=== PATIENT | male | born 1935 | race Caucasian/White ===

== ENCOUNTER 2016-04-25 10:43 | Outpatient (CLI) ==
[2016-04-25 11:43] LABS: ALBUMIN 3.7 g/dL (3.4-5.0); ALBUMIN/GLOBULIN RATIO 1.37; ANION GAP 14.1; BILIRUBIN,TOTAL 0.68 mg/dL (0.00-1.20); BUN/CREATININE RATIO 18.29; CALCIUM 9.1 mg/dL (8.2-10.2); CHOL/HDL RATIO 2.7 (4.5-6.4); CREATININE 0.82 mg/dL (0.60-1.10); POTASSIUM 4.1 mmol/L (3.5-5.1); TOTAL PROTEIN 6.4 g/dL (5.8-8.1)
== END 2016-04-25 10:44 | disposition home or self-care (01) ==
LOC: LAB 10:43
PROVIDERS: ATTEND Family Medicine
DX: J06.9 Acute upper respiratory infection, unspecified (principal); R05 Cough; I10 Essential (primary) hypertension; F41.1 Generalized anxiety disorder; J44.9 Chronic obstructive pulmonary disease, unspecified; Z00.00 Encounter for general adult medical examination without abnormal findings
CPT/HCPCS: 36415; 80053; 80061; 84443

== ENCOUNTER 2016-10-13 09:41 | Outpatient (CLI) ==
[2016-10-13 10:09] LABS: BASOPHILS # (AUTO) 0.1 K/uL (0-0.2); BASOPHILS % (AUTO) 1.4 % (0.0-3.0); EOSINOPHILS # (AUTO) 0.5 K/ul (0.0-0.7); EOSINOPHILS % (AUTO) 8.1 % (0.0-7.0); HEMATOCRIT 40.9 % (42.0-52.0); HEMOGLOBIN 14.3 g/dl (14.0-18.0); IMMATURE GRANULOCYTE % (AUTO) 0.2 % (0.0-5.0); LYMPHOCYTES # (AUTO) 1.7 K/uL (0.60-3.4); LYMPHOCYTES % (AUTO) 28.2 (10.0-50.0); MEAN CORPUSCULAR HEMOGLOBIN 33.6 pg (27.0-31.0); MONOCYTES # (AUTO) 0.5 K/uL (0.4-2.0); MONOCYTES % (AUTO) 8.4 (0-10); NEUTROPHILS # (AUTO) 3.2 K/ul (2.0-6.9); NEUTROPHILS % (AUTO) 53.7; PLATELET COUNT 176 10^3/uL (140-440); RED BLOOD COUNT 4.26 10^6/ul (4.70-6.10); WHITE BLOOD COUNT 5.92 K/ul (4.2-10.2)
[2016-10-13 10:21] LABS: BILIRUBIN,URINE Negative (NEGATIVE); KETONES,URINE Negative (NEGATIVE); LEUKOCYTE ESTERASE ,URINE Negative (NEGATIVE); NITRITE,URINE Negative (NEGATIVE); PH,URINE 5.5 (5-9); PROTEIN,URINE Negative (NEGATIVE); URINE, BLOOD Negative (NEGATIVE)
[2016-10-13 10:26] LABS: ADD URINE MICROSCOPIC NO
[2016-10-13 10:35] LABS: ALBUMIN 3.5 g/dL (3.4-5.0); ALBUMIN/GLOBULIN RATIO 1.4; BILIRUBIN,TOTAL 0.6 mg/dL (0.00-1.20); BUN/CREATININE RATIO 15.18; CALCIUM 8.9 mg/dL (8.2-10.2); CHOL/HDL RATIO 2.6 (4.5-6.4); CREATININE 0.79 mg/dL (0.60-1.10)
== END 2016-10-13 09:42 | disposition home or self-care (01) ==
LOC: LAB 09:41
PROVIDERS: ATTEND Family Medicine
DX: I10 Essential (primary) hypertension (principal); E78.5 Hyperlipidemia, unspecified; R73.9 Hyperglycemia, unspecified; M15.9 Polyosteoarthritis, unspecified; Z79.899 Other long term (current) drug therapy
CPT/HCPCS: 36415; 80053; 80061; 81001; 85025

== ENCOUNTER 2016-10-19 10:42 | Outpatient (CLI) ==
--- NOTE | 2016-10-19 12:01 | CT ---
Exam: CT of the abdomen pelvis without intravenous contrast. Comparison: None available. Reason for exam: Right upper quadrant pain. Finding: The partially imaged ground-glass nodule in the right lower lobe measuring 1.3 cm on axial image #1. No pleural effusion, or focal consolidation in the partially imaged lung bases. 1.6 cm x 2.1 cm hepatic hypodensity seen on axial image number 28 and coronal image number 51 incomp letely characterize without intravenous contrast. There are multiple other hepatic hypodensities see n throughout the liver measuring up to 1 cm. Old granulomas disease is seen within the splenic paren chyma. The pancreas and adrenal glands appear grossly unremarkable within the limitations of a noncontraste d examination The gallbladder is been removed. No hydronephrosis, hydroureter, or nephrolithiasis is seen in either kidney. No focal small bowel dilatation or transition point. No inflammatory changes are seen within the ab dominal or pelvic fat. No intra-abdominal free air, pelvic free fluid. Circumferential thickening is seen within the bladder wall. 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 No suspicious appearing osteoblastic or osteolytic lesions with moderate degenerative disease in the lumbosacral spine. The imaged osseous structures appear diffusely demineralized. Impression: 1. Partially imaged 1.3 cm nodule in the right lower lobe. Please see CT examination of the chest p erformed on the same day for further characterization. 2. Multiple hepatic hypodensities are seen throughout the liver measuring up to 2.1 cm. Findings a re incompletely evaluated without intravenous contrast administration. Recommend three-phase liver protocol or MRI for further characterization. 3. Diverticular disease without surrounding inflammatory change. 4. Circumferential bladder wall thickening may represent cystitis or outlet obstruction. 5. Diffuse demineralization of the osseous structures. Report faxed at [id number] hours on 10/19/2016.
--- NOTE | 2016-10-19 12:03 | CT ---
Exam: CT of the chest without contrast History: Shortness breath Technique: [address] of the chest without intravascular contrast FINDINGS: There is no prior study for comparison. There is a 1.1 x 1.0 cm nodule of the right lower lobe. No additional nodules, masses or infiltrates. The lungs are generally hyperexpanded without emphysematous bleb. Atherosclerotic calcification of the aorta without aneurysm. No pathologic ly mph node enlargement or abundance of the mediastinum. No acute findings of the chest wall soft tiss ues or bony thorax. Impression: 1. Chronic obstructive pulmonary disease 2. Right lower lobe nodule is indeterminate. Tissue sampling may be needed. 3. No infiltrative opacities
== END 2016-10-19 10:43 | disposition home or self-care (01) ==
LOC: RAD 10:42
PROVIDERS: ATTEND Family Medicine
DX: R10.11 Right upper quadrant pain (principal); R10.13 Epigastric pain; K21.0 Gastro-esophageal reflux disease with esophagitis; R06.02 Shortness of breath; J44.9 Chronic obstructive pulmonary disease, unspecified; Z72.0 Tobacco use

== ENCOUNTER 2017-01-10 12:13 | Outpatient (CLI) ==
[2017-01-10 12:42] LABS: BASOPHILS # (AUTO) 0.1 K/uL (0-0.2); BASOPHILS % (AUTO) 1.6 % (0.0-3.0); EOSINOPHILS # (AUTO) 0.7 K/ul (0.0-0.7); EOSINOPHILS % (AUTO) 12.1 % (0.0-7.0); HEMATOCRIT 39.2 % (42.0-52.0); HEMOGLOBIN 13.7 g/dl (14.0-18.0); IMMATURE GRANULOCYTE % (AUTO) 0.3 % (0.0-5.0); LYMPHOCYTES # (AUTO) 1.7 K/uL (0.60-3.4); LYMPHOCYTES % (AUTO) 28.5 (10.0-50.0); MEAN CORPUSCULAR HEMOGLOBIN 33.6 pg (27.0-31.0); MEAN CORPUSCULAR HGB CONC 34.9 (31.8-35.4); MEAN CORPUSCULAR VOLUME 96.1 fl (80.0-94.0); MONOCYTES # (AUTO) 0.4 K/uL (0.4-2.0); NEUTROPHILS % (AUTO) 51.5; PLATELET COUNT 160 10^3/uL (140-440); RED BLOOD COUNT 4.08 10^6/ul (4.70-6.10); WHITE BLOOD COUNT 5.79 K/ul (4.2-10.2)
[2017-01-10 12:52] LABS: BILIRUBIN,URINE Negative (NEGATIVE); KETONES,URINE Negative (NEGATIVE); LEUKOCYTE ESTERASE ,URINE Negative (NEGATIVE); NITRITE,URINE Negative (NEGATIVE); PH,URINE 5.5 (5-9); PROTEIN,URINE Negative (NEGATIVE); URINE, BLOOD Negative (NEGATIVE)
[2017-01-10 13:11] LABS: ADD URINE MICROSCOPIC NO
[2017-01-10 13:28] LABS: ALBUMIN 3.4 g/dL (3.4-5.0); ALBUMIN/GLOBULIN RATIO 1.31; ANION GAP 11.8; BILIRUBIN,TOTAL 0.77 mg/dL (0.00-1.20); BUN/CREATININE RATIO 19.73; CALCIUM 8.9 mg/dL (8.2-10.2); CHOL/HDL RATIO 2.8 (4.5-6.4); CREATININE 0.76 mg/dL (0.60-1.10); POTASSIUM 3.8 mmol/L (3.5-5.1)
== END 2017-01-10 12:14 | disposition home or self-care (01) ==
LOC: LAB 12:13
PROVIDERS: ATTEND Family Medicine
DX: I10 Essential (primary) hypertension (principal); I25.10 Atherosclerotic heart disease of native coronary artery without angina pectoris; J44.9 Chronic obstructive pulmonary disease, unspecified; K76.9 Liver disease, unspecified; Z79.899 Other long term (current) drug therapy
CPT/HCPCS: 36415; 80053; 80061; 81001; 82977; 84443; 85025

== ENCOUNTER 2017-10-01 12:38 | Outpatient (CLI) ==
--- NOTE | 2017-10-01 14:28 | CT ---
EXAM: CT of the chest without contrast History: Follow-up lung nodules. Comparison: Chest CT 01/22/2017 Technique: Multiplanar CT images through the thorax were obtained without the administration of IV c ontrast Findings: Heart remains mildly enlarged. Coronary calcifications. No pericardial effusion. No path ologically enlarged thoracic lymph nodes. No thoracic aortic aneurysm. Calcified granulomas are aga in seen within the thorax. No significant interval change in the 1.3 cm right lower lung nodule. The re is a new 8 mm irregular nodule within the right upper lobe. No consolidation. No pleural fluid a nd no pneumothorax. Within the visualized upper abdomen, no change in the hypoattenuating liver lesions consistent with c ysts. No acute osseous abnormalities. Impression: 1. New 8 mm right upper lobe lung nodule. This could be inflammatory or malignant. Tissue sampling should be considered. If biopsy is not performed then recommend follow-up chest CT in 3 months. 2. Stable 1.3 cm right lower lobe nodule.
--- NOTE | 2017-10-01 15:00 | CT ---
Exam: CT lumbar spine without intravenous contrast. Comparison: CT abdomen pelvis performed 01/22/2017. Reason for exam: Back pain. FINDINGS: No obvious vertebral body height loss is seen in the lumbar spine. There is multilevel de generative disease with intervertebral body disc space height narrowing most notably at L3-4, L4-5 an d L5-S1. These findings do not appear significantly changed from the CT examination of the abdomen pe lvis performed on 01/22/2017. There is similar appearing straightening of the lumbar lordotic curve. T12-L1: No significant central canal or foraminal narrowing. L1-L2: Small broad-based disc bulge with impression on the thecal sac resulting in mild central radha l and foraminal narrowing. L2-L3: Small broad-based disc bulge with impression on the thecal sac with mild central canal and fo raminal narrowing. L3-L4: Broad-based disc bulge with impression on the thecal sac resulting in moderate central canal and foraminal narrowing. L4-L5: Intervertebral body disc space height loss with extruded disc and facet hypertrophy resulting in moderate central canal and foraminal narrowing. L5-S1: Broad-based disc bulge with facet hypertrophy and intervertebral body disc space height loss resulting in moderate central canal and moderate to marked foraminal narrowing. Impression: 1. No acute fraction lumbar spine. 2. Multilevel discogenic disease as described. If clinical concern exists, MRI may be performed for further characterization.
== END 2017-10-01 12:39 | disposition home or self-care (01) ==
LOC: RAD 12:38
PROVIDERS: ATTEND Internal Medicine
DX: R91.1 Solitary pulmonary nodule (principal); M54.9 Dorsalgia, unspecified

== ENCOUNTER 2017-12-01 16:44 | Emergency (ER) ==
[2017-12-01 16:50] VITALS: BP 140/75; TEMP 97.8; BMI 16.4
[2017-12-01] MEDS ORDERED: ROCEPHIN IM STA (17:01)
[2017-12-01] MEDS ORDERED: LIDOCAINE HCL 1% SDV IM STA (17:01)
[2017-12-01] MEDS ORDERED: TYLENOL PO STA (17:02)
--- NOTE | 2017-12-01 17:05 | ED.PDOC ---
General ED Provider: Dr. OG ANTONIO Chief Complaint: Bite Stated Complaint: Patient is an 82 year old male who comes to the ER with right hand pain. He thinks he got bit by a spider. State that he has been bit before. States pain is 3 at rest but gets worse when touched. Time Seen by Physician: 17:03 Information Source: Patient Primary Care Provider: RANDY YUN Nursing and Triage Documentation Reviewed and Agree: Yes Does patient meet sepsis criteria?: No System Inflammatory Response Syndrome: Not Applicable Sepsis Protocol: For patient's 13 years and over: Temp is 96.8 and below OR 101 and greater Pulse >90 BPM Resp >20/minute Acutely Altered Mental Status Are patient's symptoms suggestive of a new infection, such as: -Pneumonia -Skin, Soft Tissue -Endocarditis -UTI -Bone, Joint Infection -Implantable Device -Acute Abdominal Infection -Wound Infection -Meningitis -Blood Stream Catheter Infection -Unknown Review of Systems - Review Of Systems Constitutional: Reports: No symptoms Eyes: Reports: No symptoms Ears, Nose, Mouth, Throat: Reports: No symptoms Respiratory: Reports: No symptoms Cardiac: Reports: No symptoms GI: Reports: No symptoms : Reports: No symptoms Musculoskeletal: Reports: Joint swelling (right hand ), Muscle pain Skin: Reports: Lumps Neurological: Reports: No symptoms Endocrine: Reports: No symptoms Hematologic/Lymphatic: Reports: No symptoms All Other Systems: Reviewed and Negative Past Medical History - Past Medical History Previously Healthy: Yes Endocrine: Reports: Unknown Cardiovascular: Reports: Unknown Respiratory: Reports: Unknown Hematological: Reports: Unknown Gastrointestinal: Reports: Unknown Genitourinary: Reports: Unknown Neuro/Psych: Reports: Unknown Musculoskeletal: Reports: Unknown Cancer: Reports: Unknown - Surgical History General Surgical History: Reports: Unknown - Family History Family History: Reports: Unknown - Social History Smoking Status: Former smoker Hx Substance Use: No Alcohol Screening: None Physical Exam - Physical Exam Appearance: Ill-appearing Ill-appearing: Mild Pain Distress: Severe Eyes: Conjunctiva clear ENT: Nose normal Neck: Supple Respiratory: Airway patent, Breath sounds clear, Breath sounds equal, Respirations nonlabored Cardiovascular: RRR, Pulses normal, No rub, No murmur Musculoskeletal: Limited ROM (right hand base of the 3rd finger.) Skin: Warm, Dry Neurological: Alert, Oriented Psychiatric: Anxious Critical Care Note - Critical Care Note Total Time (mins): 0 Course - Course Orders, Labs, Meds: Orders Category Date Time Status Acetaminophen [Tylenol] MEDS 12/01/17 17:02 Discontinued 1,000 mg PO ONCE STA Ceftriaxone Sodium [Rocephin] MEDS 12/01/17 17:01 Discontinued 1 gm IM ONCE STA Lidocaine HCl/Pf [Lidocaine HCl 1% Sdv] MEDS 12/01/17 17:01 Discontinued 2.1 ml IM ONCE STA Medications Discontinued Medications Generic Name Dose Route Start Last Admin Trade Name Jacinta PRN Reason Stop Dose Admin Acetaminophen 1,000 mg 12/01/17 17:02 12/01/17 17:19 Tylenol PO 12/01/17 17:03 1,000 mg ONCE STA Administration Ceftriaxone Sodium 1 gm 12/01/17 17:01 12/01/17 17:21 Rocephin IM 12/01/17 17:02 1 gm ONCE STA Administration Lidocaine HCl 2.1 ml 12/01/17 17:01 12/01/17 17:20 Lidocaine Hcl 1% Sdv IM 12/01/17 17:02 2.1 ml ONCE STA Administration Vital Signs: Temp Pulse Resp BP Pulse Ox 12/01/17 16:44 97.8 F 88 20 140/75 93 L Departure - Departure Time of Disposition: 17:40 Disposition: HOME SELF-CARE Discharge Problem: Spider bite Qualifiers: Encounter type: initial encounter Injury intent: undetermined intent Qualified Code(s): T63.304A - Toxic effect of unspecified spider venom, undetermined, initial encounter Instructions: Black Spider Bite (ED) Condition: Stable Pt referred to PMD for follow-up: Yes IPMP verified?: No Additional Instructions: Follow up with PCP in 3 days Take Medications as prescribed Prescriptions: Hydrocodone/Acetaminophen [Wilson 5-325 Tablet] 1 tab PO Q6HR PRN #12 tablet PRN Reason: PAIN Cephalexin [Keflex] 500 mg PO Q8HR #30 capsule Allergies/Adverse Reactions: Allergies No Known Allergies Allergy (Unverified 12/01/17 16:50) Home Medications: Ambulatory Orders Cephalexin [Keflex] 500 mg PO Q8HR #30 capsule 12/01/17 Hydrocodone/Acetaminophen [Wilson 5-325 Tablet] 1 tab PO Q6HR PRN #12 tablet
== END 2017-12-01 17:48 | disposition home or self-care (01) ==
LOC: ED 16:44
DX: T63.304A Toxic effect of unspecified spider venom, undetermined, initial encounter (principal)
CPT/HCPCS: 96372; 99283

== ENCOUNTER 2018-08-17 08:53 | Inpatient (IN) | payer OTHER ==
--- NOTE | 2018-08-17 09:57 | CT ---
EXAM: CT scan of the chest without contrast HISTORY: Cough TECHNIQUE: Helical imaging of the chest was performed without contrast. 5 mm thin axial images and coronal and sagittal reconstructions were provided for interpretation. Comparison 10/01/2017 CT scan of the chest. FINDINGS: The heart is normal size. There is diffuse atherosclerotic calcification of the thoracic aorta. No mediastinal abnormalities are seen. There is a irregular opacity seen in the right upper lobe of the lung seen on axial image number 32. The lesion demonstrates mild increase in size when c ompared to previous study and measures up to 10.3 mm transverse maximum. There is a new cavitary opacity seen in the more inferior right lower lobe of the lung seen on axial image number 52. The lesion measures 1.2 cm AP, 1.5 cm transverse. No lytic or blastic lesions are seen within the osseous structures. Scattered hypodense lesions are again seen within the liver. The findings were also present on previous study of 10/19/2016. IMPRESSION: There is a new cavitary opacity seen in the right lower lobe of the lung as described ab ove measuring up to 1.5 cm maximum. The previously noted small opacity in the right upper lobe of th e lung demonstrates mild increase in size and measures up to 10 mm maximum. The findings may represe nt an infectious process versus metastatic disease versus primary carcinoma of the lung. If clinical ly indicated, CT-guided biopsy of the lesions can be obtained for further evaluation.
[2018-08-17] MEDS ORDERED: SODIUM CHLORIDE 1,000 ML IV STA (10:28)
[2018-08-17] MEDS ORDERED: ROCEPHIN 2 GM in SODIUM CHLORIDE 100 ML IV STA (10:28)
--- NOTE | 2018-08-17 10:31 | ED.PDOC ---
General ED Provider: Dr. APRIL MARQUIS Chief Complaint: Shortness of Air Stated Complaint: shortness of breath Time Seen by Physician: 09:00 Mode of Arrival: Walk-In Information Source: Patient Exam Limitations: No limitations Primary Care Provider: RANDY YUN Nursing and Triage Documentation Reviewed and Agree: Yes Does patient meet sepsis criteria?: Yes If yes, has appropriate treatment been initiated?: Yes System Inflammatory Response Syndrome: Not Applicable Sepsis Protocol: For patient's 13 years and over: Temp is 96.8 and below OR 101 and greater Pulse >90 BPM Resp >20/minute Acutely Altered Mental Status Are patient's symptoms suggestive of a new infection, such as: -Pneumonia -Skin, Soft Tissue -Endocarditis -UTI -Bone, Joint Infection -Implantable Device -Acute Abdominal Infection -Wound Infection -Meningitis -Blood Stream Catheter Infection -Unknown Review of Systems - Review Of Systems Constitutional: Reports: No symptoms Eyes: Reports: No symptoms Ears, Nose, Mouth, Throat: Reports: No symptoms Respiratory: Reports: Cough Cardiac: Reports: No symptoms GI: Reports: No symptoms : Reports: No symptoms Musculoskeletal: Reports: No symptoms Skin: Reports: No symptoms Neurological: Reports: No symptoms Endocrine: Reports: No symptoms Hematologic/Lymphatic: Reports: No symptoms All Other Systems: Reviewed and Negative Past Medical History - Past Medical History Previously Healthy: Yes Endocrine: Reports: Unknown Cardiovascular: Reports: Unknown Respiratory: Reports: Unknown Hematological: Reports: Unknown Gastrointestinal: Reports: Unknown Genitourinary: Reports: Unknown Neuro/Psych: Reports: Unknown Musculoskeletal: Reports: Unknown Cancer: Reports: Unknown - Surgical History General Surgical History: Reports: Unknown - Family History Family History: Reports: Unknown - Social History Smoking Status: Former smoker Hx Substance Use: No Alcohol Screening: None - Immunizations Tetanus Shot up to Date: No Physical Exam - Physical Exam Appearance: Well-appearing, No pain distress, Well-nourished Eyes: JESSICA, EOMI, Conjunctiva clear ENT: Ears normal, Nose normal, Oropharynx normal Respiratory: Rhonchi Cardiovascular: RRR, Pulses normal, No rub, No murmur GI/: Soft, Nontender, No masses, Bowel sounds normal, No Organomegaly Musculoskeletal: Normal strength, ROM intact, No edema, No calf tenderness Skin: Warm, Dry, Normal color Neurological: Sensation intact, Motor intact, Reflexes intact, Cranial nerves intact, Alert, Oriented Psychiatric: Affect appropriate, Mood appropriate Interpretation - Radiology Interpretation Radiology Interpretation By: Radiologist Radiology Results: Positive (new cavitary lesion) - Lighting Technician Rate: Normal Rhythm: Sinus Ectopy: None, PACs - EKG Interpretation Rate: Normal Rhythm: Sinus Ectopy: PACs [place]: NL ST Segment: Normal Re-Evaluation - Re-Evaluation Time of Re-Evaluation: 10:00 Status: Improved Vital Signs Stable: Yes Pain Level: 0 Appearance: NAD Lungs: Clear Skin: Warm and Dry Neuro: Alert and Oriented X3 CV: RRR Additional Comments: NO SHORTNESS OF BREATH NOTED - Re-Evaluation Time of Re-Evaluation: 10:45 Status: Unchanged (FROM EARLIER ROUND) Vital Signs Stable: Yes Pain Level: 0 Appearance: NAD Skin: Warm and Dry Neuro: Alert and Oriented X3 CV: RRR (NOT S.O.B) Physician Notification - Case Discussed Physician Notified: pmd Time of Notification: 10:56 (admitt ) Admit To: Inpatient Critical Care Note - Critical Care Note Total Time (mins): 0 Course - Course Hematology/Chemistry: 08/17/18 09:33 08/17/18 09:33 Orders, Labs, Meds: Lab Review 08/17/18 08/17/18 08/17/18 09:17 09:33 09:33 WBC 12.20 H RBC 3.54 L Hgb 12.1 L Hct 36.1 L MCV 102.0 H MCH 34.2 H MCHC 33.5 RDW Coeff of Finn 12.4 Plt Count 125 L Immature Gran % (Auto) 0.2 Neut % (Auto) 97.0 Lymph % (Auto) 1.6 L [place] % (Auto) 0.7 Eos % (Auto) 0.3 Baso % (Auto) 0.2 Immature Gran # (Auto) 0.0 Neut # (Auto) 11.8 H Lymph # (Auto) 0.2 L [place] # (Auto) 0.1 L Eos # (Auto) 0.0 Baso # (Auto) 0.0 Puncture Site Rb O2 Saturation 98.0 ABG pH 7.421 ABG pCO2 36.2 ABG pO2 102.0 H ABG HCO3 23.5 ABG Total CO2 25 ABG Base Excess -1 FiO2 % 21.0 Sodium 137.9 Potassium 3.60 Chloride 106.6 Carbon Dioxide 23.7 Anion Gap 11.20 BUN 12.2 Creatinine 0.63 Estimated GFR (MDRD) 122.00 BUN/Creatinine Ratio 19.36 Glucose 119.5 H Lactic Acid Calcium 8.82 Total Bilirubin 1.14 AST 96.9 H ALT 47.2 Alkaline Phosphatase 83.6 Troponin I < 0.012 Total Protein 5.28 L Albumin 3.15 L Globulin 2.13 Albumin/Globulin Ratio 1.47 Procalcitonin 08/17/18 08/17/18 09:33 09:33 WBC RBC Hgb Hct MCV MCH MCHC RDW Coeff of Finn Plt Count Immature Gran % (Auto) Neut % (Auto) Lymph % (Auto) [place] % (Auto) Eos % (Auto) Baso % (Auto) Immature Gran # (Auto) Neut # (Auto) Lymph # (Auto) [place] # (Auto) Eos # (Auto) Baso # (Auto) Puncture Site O2 Saturation ABG pH ABG pCO2 ABG pO2 ABG HCO3 ABG Total CO2 ABG Base Excess FiO2 % Sodium Potassium Chloride Carbon Dioxide Anion Gap BUN Creatinine Estimated GFR (MDRD) BUN/Creatinine Ratio Glucose Lactic Acid 2.52 H Calcium Total Bilirubin AST ALT Alkaline Phosphatase Troponin I Total Protein Albumin Globulin Albumin/Globulin Ratio Procalcitonin 1.96 Orders Category Date Time Status ABG DRAW REQUEST Stat CARDIO 08/17/18 09:17 Completed EKG-(ED ONLY) Stat CARDIO 08/17/18 09:17 Completed ABG Stat LAB 08/17/18 09:17 Completed BLOOD CULTURE Stat LAB 08/17/18 10:08 Received CBC W/ AUTO DIFF Stat LAB 08/17/18 09:33 Completed COMPREHENSIVE METABOLIC PANEL Stat LAB 08/17/18 09:33 Completed LACTIC ACID Stat LAB 08/17/18 09:33 Completed PROCALCITONIN Stat LAB 08/17/18 09:33 Completed TROPONIN I Stat LAB 08/17/18 09:33 Completed Ceftriaxone Sodium [Rocephin] MEDS 08/17/18 10:47 Discontinued 2 gm .ROUTE .STK-MED ONE Ceftriaxone Sodium [Rocephin] 2 gm MEDS 08/17/18 10:28 Active 0.9 % Sodium Chloride [Sodium Chloride] 100 ml IV ONCE Sodium Chloride 0.9% [Sodium Chloride] 1,000 ml MEDS 08/17/18 10:28 Active IV 250 mls/hr CT CHEST W/O CONTRAST Stat RADS 08/17/18 09:18 Completed Medications Generic Name Dose Route Start Last Admin Trade Name Jacinta PRN Reason Stop Dose Admin Ceftriaxone Sodium 2 gm/ 100 mls @ 100 mls/hr 08/17/18 10:28 Sodium Chloride IV 08/17/18 11:27 ONCE STA Sodium Chloride 1,000 mls @ 250 mls/hr 08/17/18 10:28 Sodium Chloride IV 08/17/18 14:27 .Q4H STA Vital Signs: Temp Pulse Resp BP Pulse Ox 08/17/18 08:55 99.3 F 96 H 96 H 108/52 L 97 Departure - Departure Time of Disposition: 10:30 Disposition: ADMITTED INPATIENT Discharge Problem: Cavitary lesion of lung Anemia Qualifiers: Anemia type: unspecified type Qualified Code(s): D64.9 - Anemia, unspecified Instructions: Bacterial Pneumonia (ED) Condition: Good Pt referred to PMD for follow-up: Yes IPMP verified?: No Additional Instructions: Please call your Family Physician as soon as possible to schedule a follow-up appointment. Allergies/Adverse Reactions: Allergies No Known Allergies Allergy (Unverified 12/01/17 16:50) Home Medications: Ambulatory Orders Amlodipine Besylate 5 mg PO DAILY 08/17/18 Carvedilol 6.25 mg PO Q12HR 08/17/18 Chlordiazepoxide HCl 10 mg PO BID PRN 08/17/18 Lisinopril 20 mg PO DAILY 08/17/18 Montelukast Sodium 10 mg PO DAILY 08/17/18 Omeprazole 20 mg PO BID 08/17/18 Tramadol HCl [Ultram] 50 mg PO BID PRN 08/17/18 Disposition Discussed With: Patient
[2018-08-17] MEDS ORDERED: ROCEPHIN ONE (10:47)
[2018-08-17] MEDS ORDERED: VANCOMYCIN 1 GM in SODIUM CHLORIDE 250 ML IV STA (10:59)
[2018-08-17] MEDS: DUONEB NEB SCH ×3 (12:03→21:51)
[2018-08-17 12:12] VITALS: BMI 16.4
[2018-08-17] MEDS: SODIUM CHLORIDE 1,000 ML IV SCH (12:25)
[2018-08-17] MEDS: SOLU-MEDROL 125 MG IVP SCH ×3 (12:26→20:11)
[2018-08-17] MEDS: ULTRAM PO PRN (17:00)
[2018-08-17] MEDS: COREG PO SCH (20:12)
[2018-08-18] MEDS: SODIUM CHLORIDE 1,000 ML IV SCH ×2 (01:24→16:56)
[2018-08-18] MEDS: DUONEB NEB SCH ×4 (04:40→22:44)
[2018-08-18] MEDS: SOLU-MEDROL 125 MG IVP SCH ×3 (05:39→21:14)
[2018-08-18] MEDS: NORVASC PO SCH (08:37)
[2018-08-18] MEDS: ZESTRIL PO SCH (08:37)
[2018-08-18] MEDS: COREG PO SCH ×2 (08:37→21:15)
[2018-08-18] MEDS: LIBRIUM PO PRN (08:37)
[2018-08-18] MEDS: ROCEPHIN 1 GM in SODIUM CHLORIDE 50 ML IV SCH (08:38)
[2018-08-18] MEDS ORDERED: NON-FORMULARY MEDICATION (Lisinopril [Lisinopril] 20 MG) PO SCH (09:00)
[2018-08-18] MEDS: VANCOMYCIN 1 GM in SODIUM CHLORIDE 250 ML IV SCH ×2 (09:43→21:13)
[2018-08-18] MEDS: ULTRAM PO PRN (19:25)
[2018-08-19] MEDS: DUONEB NEB SCH ×4 (04:42→23:15)
[2018-08-19] MEDS: SOLU-MEDROL 125 MG IVP SCH (06:12)
[2018-08-19] MEDS: ROCEPHIN 1 GM in SODIUM CHLORIDE 50 ML IV SCH (08:44)
[2018-08-19] MEDS: NORVASC PO SCH (08:45)
[2018-08-19] MEDS: COREG PO SCH ×2 (08:45→21:23)
[2018-08-19] MEDS: ZESTRIL PO SCH (08:45)
[2018-08-19] MEDS ORDERED: SODIUM CHLORIDE 1,000 ML IV SCH (09:00)
--- NOTE | 2018-08-19 09:15 | PCM.PROG ---
Attending Provider: ATTENDING PROVIDER: Dr. RANDY YUN This patient is seen with Eugenia Paiz, Nurse Practitioner. DATE OF SERVICE: 08/19/18 SUBJECTIVE: This 83 year old WHITE/ M was hospitalized 08/17/18. The patient is resting comfortably. He does have some shoulder pain due to arthritis. Blood culture is positive, sensitivity is still pending showing gram negative rods. However the patient has been afebrile. He has had minimal cough. Blood pressure is controlled. Cough likely due to worsening lung disease. REVIEW OF SYSTEMS: CONSTITUTIONAL: No night sweats. No fatigue, malaise, lethargy. No fever or chills. HEENT: Eyes: No visual changes. No eye pain. No eye discharge. ENT: No runny nose. No epistaxis. No sinus pain. No odynophagia. No congestion. RESPIRATORY: Cough, no congestion. No hemoptysis. No shortness of breath. CARDIOVASCULAR: No angina symptoms. No CHF symptoms. No atypical chest pain for CAD. No palpitations. No orthopnea.. GASTROINTESTINAL: No abdominal pain. No nausea or vomiting. No diarrhea or constipation. No hematemesis. No hematochezia. GENITOURINARY: No urgency. No frequency. No dysuria. No hematuria. No obstructive symptoms. No discharge. No pain. No significant abnormal bleeding. MUSCULOSKELETAL: No musculoskeletal pain; no joint swelling. Weakness. NEUROLOGICAL: Awake, alert, oriented to time, place and person. No headache. No neck pain. No syncope. No seizures. No dizziness. PSYCHIATRIC: Not anxious. No depression. No suicidal thoughts. No homicidal thoughts. SKIN: No rash. No lesions. No wounds. ENDOCRINE: Weight loss. No weight gain. HEMATOLOGIC/LYMPHATIC: No anemia. No purpura. No petechiae. No prolonged or excessive bleeding. No palpable lymph nodes. PHYSICAL EXAMINATION: GENERAL: The patient is awake, alert and oriented, lying in bed in no distress. VITAL SIGNS: Temperature 98.3 F, Pulse 83, Respiratory Rate 20, BP 116/61, Pulse Ox 93% HEENT: Head normocephalic, atraumatic. Eyes: Extraocular muscles are intact. Pupils are equal, round and reactive to light and accommodation. Ears: No lesions. Nose appeared normal. Throat: No exudate or erythema. NECK: Supple. No JVD, no carotid bruit. No lymphadenopathy or thyromegaly. LUNGS: Severely diminished breath sounds. Clear to auscultation. Percussion note normal. Chest symmetrical. HEART: S1, S2, no S3. No murmurs. No cyanosis or clubbing. No ascites. Pulses: Dorsalis pedis and posterior tibial pulses +1 to +2 both sides. ABDOMEN: Soft. Non-tender. Bowel sounds active. No CVA tenderness. No mass felt. EXTREMITIES: No edema. Full range of motion of all extremities, equal. NEUROLOGIC: No focal deficit. Cranial nerves II through XII are grossly intact. No headache, no double vision or headache. SKIN: Not dry. Intact. Turgor-normal. LYMPHATIC: No palpable lymph nodes/no lymphedema. MUSCULOSKELETAL: Normal joints with no swelling. Muscle tone is normal. LAB REVIEW: 08/19/18 05:00 08/19/18 05:00 08/19/18 05:00: Sodium 137.3, Potassium 3.93, Chloride 106.7, Carbon Dioxide 24.7, Anion Gap 9.83, BUN 18.7, Creatinine 0.59 L, Estimated GFR (MDRD) 132.00, BUN/Creatinine Ratio 31.69, Glucose 133.4 H, Calcium 8.15 L, Total Bilirubin 0.40, AST 34.3 D, ALT 38.4, Alkaline Phosphatase 67.7, Total Protein 5.04 L, Albumin 2.96 L, Globulin 2.08, Albumin/Globulin Ratio 1.42 08/19/18 05:00: WBC 13.01 H, RBC 3.31 L, Hgb 11.4 L, Hct 34.0 L, MCV 102.7 H, MCH 34.4 H, MCHC 33.5, RDW Coeff of Finn 12.9, Plt Count 118 L, Immature Gran % ( Auto) 2.3, Neut % (Auto) 90.8, Lymph % (Auto) 5.1 L, [place] % (Auto) 1.7, Eos % ( Auto) 0.0, Baso % (Auto) 0.1, Immature Gran # (Auto) 0.3, Neut # (Auto) 11.8 H, Lymph # (Auto) 0.7, [place] # (Auto) 0.2 L, Eos # (Auto) 0.0, Baso # (Auto) 0.0 ASSESSMENT: Please see below. 1. COPD exacerbation 2. Multiple lung nodules likely cancer, patient refuses further evaluation 3. Polyarthritis 4. Weight loss 5. Positive blood culture, sensitivity pending. PLAN: 1. Decreased IV fluids to 50 2. Continue IV antibiotics 3. Prednisone 10mg PO daily 4. Discontinue Solu-Cortef Plan and coordination of the patient's care discussed in the presence of Computer Forensics Investigator and nurse. SCRIBED BY: Lili BENTLEY scribed while in presence of service performed by Dr. Yun/Eugenia Paiz APRN on 08/19/18 ([id number])
[2018-08-19] MEDS: PREDNISONE PO SCH (09:53)
[2018-08-19] MEDS: VANCOMYCIN 1 GM in SODIUM CHLORIDE 250 ML IV SCH ×2 (09:53→21:23)
[2018-08-19] MEDS: LIBRIUM PO PRN (10:02)
[2018-08-19] MEDS: SODIUM CHLORIDE 1,000 ML IV SCH (11:10)
[2018-08-20] MEDS: DUONEB NEB SCH ×2 (04:40→11:33)
[2018-08-20 04:55] VITALS: BP 132/67; TEMP 98.4
[2018-08-20] MEDS: ROCEPHIN 1 GM in SODIUM CHLORIDE 50 ML IV SCH (08:39)
[2018-08-20] MEDS: ZESTRIL PO SCH (08:40)
[2018-08-20] MEDS: COREG PO SCH (08:40)
[2018-08-20] MEDS: NORVASC PO SCH (08:40)
[2018-08-20] MEDS: PREDNISONE PO SCH (08:40)
[2018-08-20] MEDS: VANCOMYCIN 1 GM in SODIUM CHLORIDE 250 ML IV SCH (09:36)
--- NOTE | 2018-08-20 09:58 | PCM.PROG ---
Attending Provider: ATTENDING PROVIDER: Dr. RANDY YUN This patient is seen with Eugenia Paiz, Nurse Practitioner. DATE OF SERVICE: 08/20/18 SUBJECTIVE: This 83 year old WHITE/ M was hospitalized 08/17/18. The patient is resting comfortably. He had had positive blood culture, no fever, asymptomatic. The patient has complained of shoulder pain which has since resolved. REVIEW OF SYSTEMS: CONSTITUTIONAL: No night sweats. No fatigue, malaise, lethargy. No fever or chills. HEENT: Eyes: No visual changes. No eye pain. No eye discharge. ENT: No runny nose. No epistaxis. No sinus pain. No odynophagia. No congestion. RESPIRATORY: No cough, no congestion. No hemoptysis. No shortness of breath. CARDIOVASCULAR: No angina symptoms. No CHF symptoms. No atypical chest pain for CAD. No palpitations. No orthopnea.. GASTROINTESTINAL: No abdominal pain. No nausea or vomiting. No diarrhea or constipation. No hematemesis. No hematochezia. GENITOURINARY: No urgency. No frequency. No dysuria. No hematuria. No obstructive symptoms. No discharge. No pain. No significant abnormal bleeding. MUSCULOSKELETAL: No musculoskeletal pain; no joint swelling. NEUROLOGICAL: Awake, alert, oriented to time, place and person. No headache. No neck pain. No syncope. No seizures. No dizziness. PSYCHIATRIC: Not anxious. No depression. No suicidal thoughts. No homicidal thoughts. SKIN: No rash. No lesions. No wounds. ENDOCRINE: No unexplained weight loss. No weight gain. HEMATOLOGIC/LYMPHATIC: No anemia. No purpura. No petechiae. No prolonged or excessive bleeding. No palpable lymph nodes. PHYSICAL EXAMINATION: GENERAL: The patient is awake, alert and oriented, lying in bed in no distress. VITAL SIGNS: Temperature 98.4 F, Pulse 73, Respiratory Rate 18, BP 132/67, Pulse Ox 97% HEENT: Head normocephalic, atraumatic. Eyes: Extraocular muscles are intact. Pupils are equal, round and reactive to light and accommodation. Ears: No lesions. Nose appeared normal. Throat: No exudate or erythema. NECK: Supple. No JVD, no carotid bruit. No lymphadenopathy or thyromegaly. LUNGS: Diminished breath sounds. Clear to auscultation. Percussion note normal. Chest symmetrical. HEART: S1, S2, no S3. No murmurs. No cyanosis or clubbing. No ascites. Pulses: Dorsalis pedis and posterior tibial pulses +1 to +2 both sides. ABDOMEN: Soft. Non-tender. Bowel sounds active. No CVA tenderness. No mass felt. EXTREMITIES: No edema. Full range of motion of all extremities, equal. NEUROLOGIC: No focal deficit. Cranial nerves II through XII are grossly intact. No headache, no double vision or headache. SKIN: Not dry. Intact. Turgor-normal. LYMPHATIC: No palpable lymph nodes/no lymphedema. MUSCULOSKELETAL: Normal joints with no swelling. Muscle tone is normal. LAB REVIEW: 08/20/18 05:00 08/20/18 05:00 08/20/18 05:00: Sodium 138.3, Potassium 3.71, Chloride 107.1 H, Carbon Dioxide 23.6, Anion Gap 11.31, BUN 18.2, Creatinine 0.60, Estimated GFR (MDRD) 129.00, BUN/Creatinine Ratio 30.33, Glucose 100.6, Calcium 8.38 L, Total Bilirubin 0.42 , AST 36.1, ALT 45.0, Alkaline Phosphatase 78.1, Total Protein 5.21 L, Albumin 3.14 L, Globulin 2.07, Albumin/Globulin Ratio 1.51 08/20/18 05:00: WBC 13.54 H, RBC 3.59 L, Hgb 12.2 L, Hct 36.6 L, MCV 101.9 H, MCH 34.0 H, MCHC 33.3, RDW Coeff of Finn 12.7, Plt Count 140, Immature Gran % ( Auto) 1.1, Neut % (Auto) 86.8, Lymph % (Auto) 7.2 L, [place] % (Auto) 4.8, Eos % ( Auto) 0.0, Baso % (Auto) 0.1, Immature Gran # (Auto) 0.2, Neut # (Auto) 11.8 H, Lymph # (Auto) 1.0, [place] # (Auto) 0.7, Eos # (Auto) 0.0, Baso # (Auto) 0.0 08/19/18 12:50: Miscellaneous Test ASSESSMENT: Please see below. 1. Right lung mass, patient refuses further treatment or workup likely malignancy. Discussed 2. Weight loss likely due to malignancy 3. Bilateral shoulder pain 4. Positive blood culture, patient asymptomatic. PLAN: 1. Discharge home 2. [place] 5-325 Q HS PRN #15 3. Again discussed in detail the likelihood of lung cancer. Patient wishes for no further treatment of evaluation. 4. Quantitative gold test pending due to cavitary lesion. 5. Omnicef 300mg twice a day for 7 days. dc home Plan and coordination of the patient's care discussed in the presence of Operational Risk Manager and nurse. SCRIBED BY: Lili BENTLEY scribed while in presence of service performed by Dr. Yun/Eugenia Paiz APRN on 08/20/18 ([id number])
--- NOTE | 2018-08-20 10:33 | PN ---
DATE OF SERVICE: 08/17/18 SUBJECTIVE: 83-year-old white male hospitalized through the emergency room with complaint of having shortness of air. The patient was seen and examined in the ER by the ER attending. He was noted to have abnormal chest x-ray which patient has newly added cavitary lesion. The patient denies fever. No chills. No PND, no orthopnea but feels tired and worn out. In the past, the patient has declined and still even today declines any further workup for mass in the lung. Cavitary lesion needs to be evaluated. The patient has possibility of pneumonia. The patient will be on Rocephin and Vancomycin. PHYSICAL EXAMINATION: GENERAL: The patient doesn't seem to be in distress at all. He is eating, appetite is good. The patient's son is in the room. VITAL SIGNS: Temperature 98.5, pulse 90, respiratory rate 18, BP 108/52, pulse ox 96%. HEENT: Head normocephalic, atraumatic. Eyes: Extraocular muscles are intact. Pupils are equal, round and reactive to light and accommodation. Ears: No lesions. Nose appeared normal. Throat: Positive for dysphonia. No exudate or erythema. NECK: Supple. No JVD, no carotid bruit. No lymphadenopathy or thyromegaly. LUNGS: Decreased breath sounds with good air entry. Clear to auscultation. Percussion note normal. Chest symmetrical. HEART: S1, S2, no S3. No murmurs. No cyanosis or clubbing. No ascites. Pulses: Dorsalis pedis and posterior tibial pulses +1 to +2 bilaterally. ABDOMEN: Soft. Nontender. Bowel sounds active. No CVA tenderness. No mass felt. EXTREMITIES: No edema. Full range of motion of all extremities, equal. NEUROLOGIC: No focal deficit. Cranial nerves II through XII are grossly intact. No headache, no double vision or headache. SKIN: Color is normal. Not dry. Intact. Turgor - normal. LYMPHATIC: No palpable lymph nodes/no lymphedema. MUSCULOSKELETAL: Normal joints with no swelling. Muscle tone is normal. LABS: Hemoglobin 12.1, hematocrit 36, WBC 12,200, normal differential. Creatinine 0.6 , BUN 12, potassium 3.6. Estimated GFR 122. ABG pH 7.4, p02 102, pc02 36, 98% saturation. Creatinine 0.6, BUN 12, glucose 119. Liver profile AST 96 which is elevated. Troponin normal. Lactic acid 2.5. Hemoglobin 12, hematocrit 36, WBC 12 ,200, normal differential. ASSESSMENT: 1. Possibility of pneumonitis with shortness of breath. 2. Lung mass, cavitary lesion. 3. Chronic lung disease. PLAN: 1. Give Vancomycin and Rocephin. 2. IV fluids. 3. Steroids. CONDITION: Stable. The patient does not want any intubation or respirator. He does not want to go any further referral for his lung mass. TIME SPENT: More than 30 minutes. Plan and coordination of the patient's care discussed in the presence of nurse. CARLITA
--- NOTE | 2018-08-20 12:53 | CM.DICTOOL ---
ADMISSION: 08/17/18 11:11 DISCHARGE: 08/20/18 DATE OF SERVICE: 08/20/18 FINAL DIAGNOSIS RIGHT LUNG MASS, CAVITARY LUNG DISEASE COPD BLOOD CULTURES POSITIVE, ESCHERICHIA COLI HARD OF HEARING HYPERTENSION PULMONARY NODULES SHOULDER PAIN, CHRONIC CATARACTS POLYARTHRITIS CHOLECYSTECTOMY NECK FRACTURE LAST VITALS Temp Pulse Resp BP Pulse Ox 98.4 F 73 18 132/67 97 08/20/18 04:53 08/20/18 04:53 08/20/18 04:53 08/20/18 04:53 08/20/18 04:53 TAKE THESE MEDICATIONS AT HOME Amlodipine Besylate (Norvasc) 5 mg PO DAILY [facility] Last Admin: 08/20/18 08:40 Dose: 5 mg Carvedilol (Coreg) 6.25 mg PO Q12HR [facility] Last Admin: 08/20/18 08:40 Dose: 6.25 mg Chlordiazepoxide HCl (Librium) 10 mg PO BID PRN PRN Reason: Anxiety Last Admin: 08/19/18 10:02 Dose: 10 mg Lisinopril (Zestril) 20 mg PO DAILY [facility] Last Admin: 08/20/18 08:40 Dose: 20 mg Tramadol HCl (Ultram) 50 mg PO BID PRN PRN Reason: Pain Last Admin: 08/18/18 19:25 Dose: 50 mg Singulair 10 mg PO DAILY Omeprazole 20 mg PO BID ALLERGIES No Known Allergies DISCONTINUED MEDICATIONS NONE NEW PRESCRIPTIONS: OMNICEF 300MG PO BID X7 DAYS #14/NR NORCO 5/325MG PO HS PRN #15/NR SMOKING: FORMER SMOKER DISEASE SPECIFIC EDUCATION: CAVITARY LUNG DISEASE LUNG MASS, LIKELY MALIGNANT BLOOD CULTURES POSITIVE, E. COLI MEDICATION MANAGEMENT FOLLOW-UP APPOINTMENTS LAB REVIEW: 08/20/18 05:00 08/20/18 05:00 08/20/18 08:30: Vancomycin Trough 10.026 08/20/18 05:00: Sodium 138.3, Potassium 3.71, Chloride 107.1 H, Carbon Dioxide 23.6, Anion Gap 11.31, BUN 18.2, Creatinine 0.60, Estimated GFR (MDRD) 129.00, BUN/Creatinine Ratio 30.33, Glucose 100.6, Calcium 8.38 L, Total Bilirubin 0.42 , AST 36.1, ALT 45.0, Alkaline Phosphatase 78.1, Total Protein 5.21 L, Albumin 3.14 L, Globulin 2.07, Albumin/Globulin Ratio 1.51 08/20/18 05:00: WBC 13.54 H, RBC 3.59 L, Hgb 12.2 L, Hct 36.6 L, MCV 101.9 H, MCH 34.0 H, MCHC 33.3, RDW Coeff of Finn 12.7, Plt Count 140, Immature Gran % ( Auto) 1.1, Neut % (Auto) 86.8, Lymph % (Auto) 7.2 L, [place] % (Auto) 4.8, Eos % ( Auto) 0.0, Baso % (Auto) 0.1, Immature Gran # (Auto) 0.2, Neut # (Auto) 11.8 H, Lymph # (Auto) 1.0, [place] # (Auto) 0.7, Eos # (Auto) 0.0, Baso # (Auto) 0.0 08/19/18 12:50: Miscellaneous Test PLAN: DISCHARGE HOME TODAY, 08/20/18 DIET: REGULAR DIET ACTIVITY: INDEPENDENT, UP TOLERATED HAS A CANE AND WALKER AT HOME NEEDED FOLLOW-UP APPOINTMENT: DR. YUN MONDAY AUGUST 27, 2018 @ 10:00AM CODE STATUS: FULL CODE MR. FREGOSO IS ALERT AND ORIENTED X3, HE IS AGREEABLE WITH THE PLAN TO DISCHARGE HOME TODAY. PLAN TO FOLLOW UP IN THE OFFICE NEXT WEEK. HE REFUSES FURTHER TREATMENT OR WORKUP FOR LIKELY MALIGNANT RIGHT LUNG MASS. DISCUSSED HIS WEIGHT LOSS IS LIKELY DUE TO MALIGNANCY. HE C/O CHRONIC BILATERAL SHOULDER PAIN AT BEDTIME THAT HAS WORSENED FROM ONLY IN THE WINTER TO SUMMER MONTHS WELL. PLAN TO SEND HIM HOME WITH NORCO 5/325MG PO HS PRN #15. BLOOD CULTURES ARE POSITIVE FOR E.COLI, HE IS ASYMPTOMATIC, PLAN TO CONTINUE ANTIBIOTIC THERAPY WITH OMNICEF 300MG PO BID X7 DAYS. AWAITING RESULTS FOR SENDOFF QUANTITATIVE GOLD TEST DUE TO CAVITARY LESION. BREATH SOUNDS ARE CLEAR AND DIMINISHED. ABDOMEN IS SOFT AND NONTENDER, BOWEL SOUNDS ACTIVE. MEAL INTAKES HAVE BEEN GOOD, ALL AT 100% YESTERDAY. HYDRATION STATUS GOOD, SKIN WARM, DRY, AND INTACT. MD DOMINGO BARNHART APRN
--- NOTE | 2018-08-20 13:38 | PN ---
DATE OF SERVICE: 08/18/18 SUBJECTIVE: 83-year-old white male hospitalized with bronchitis, chronic lung disease. The patient has a lung mass with cavitary lesion. He is feeling better. Appetite has improved. No fever, no chills. REVIEW OF SYSTEMS: CONSTITUTIONAL: Mild fatigue. No night sweats. No malaise, lethargy. No fever or chills. HEENT: Eyes: No visual changes. No eye pain. No eye discharge. ENT: No runny nose. No epistaxis. No sinus pain. No sore throat. No odynophagia. No congestion. RESPIRATORY: Mild hacky cough. No hemoptysis. No shortness of breath. CARDIOVASCULAR: No angina symptoms. No CHF symptoms. No atypical chest pain for CAD. No palpitations. No PND. No orthopnea. GASTROINTESTINAL: No abdominal pain. No nausea or vomiting. No diarrhea or constipation. No hematemesis. No hematochezia. GENITOURINARY: No urgency. No frequency. No dysuria. No hematuria. No obstructive symptoms. No discharge. No pain. No significant abnormal bleeding. MUSCULOSKELETAL: No musculoskeletal pain; no joint swelling. NEUROLOGICAL: No headache. No neck pain. No syncope. No seizures. No dizziness. PSYCHIATRIC: Not anxious. No depression. No suicidal thoughts. No homicidal thoughts. SKIN: No rash. No lesions. No wounds. ENDOCRINE: No unexplained weight loss. No weight gain. HEMATOLOGIC/LYMPHATIC: No anemia. No purpura. No petechiae. No prolonged or excessive bleeding. No palpable lymph nodes. PHYSICAL EXAMINATION: VITAL SIGNS: Temperature 98.5, pulse 85, respiratory rate 16, blood pressure 115/58, pulse ox 97%. HEENT: Head normocephalic, atraumatic. Eyes: Extraocular muscles are intact. Pupils are equal, round and reactive to light and accommodation. Ears: No lesions. Nose appeared normal. Throat: No exudate or erythema. NECK: Supple. No JVD, no carotid bruit. No lymphadenopathy or thyromegaly. LUNGS: Decreased breath sounds but clear to auscultation. Percussion note normal. Chest symmetrical. HEART: S1, S2, no S3. No murmurs. No cyanosis or clubbing. No ascites. Pulses: Dorsalis pedis and posterior tibial pulses +1 to +2 bilaterally. ABDOMEN: Soft. Nontender. Bowel sounds active. No CVA tenderness. No mass felt. EXTREMITIES: No edema. Full range of motion of all extremities, equal. NEUROLOGIC: No focal deficit. Cranial nerves II through XII are grossly intact. No headache, no double vision or headache. SKIN: Not dry. Intact. Turgor - normal. LYMPHATIC: No palpable lymph nodes/no lymphedema. MUSCULOSKELETAL: Normal joints with no swelling. Muscle tone is normal. LABS: Hemoglobin 11.8, hematocrit 35, WBC 15,000. Normal differential. Creatinine 0.6 , BUN 15, potassium 4.3, glucose 142, GFR 129 cc/min. ASSESSMENT: ACUTE BRONCHITIS WITH SEVERE CHRONIC LUNG DISEASE, LUNG MASS, CAVITARY LESION, ALL SEEM TO BE STABLE. PLAN: The patient doesn't want anything done for the lung mass. He wants to be left alone. He wants to go home maybe tomorrow, we will see how patient does tonight. TIME SPENT: More than 30 minutes. Plan and coordination of the patient's care discussed in the presence of nurse. CARLITA
--- NOTE | 2018-08-20 13:41 | PN ---
DATE OF SERVICE: 08/19/18 SUBJECTIVE: The patient was seen and examined with the nurse practitioner. The patient's condition seems to be improving. Appetite improving. The patient has cavitary lesion. Will do test for TB. He doesn't want any further evaluation by pulmonary M.D. Continue antibiotics. TIME SPENT: More than 30 minutes. Plan and coordination of the patient's care discussed in the presence of nurse. CARLITA
--- NOTE | 2018-08-20 14:22 | HP ---
DATE OF SERVICE: 08/17/18 REASON FOR HOSPITALIZATION/HISTORY OF PRESENT ILLNESS: This is an 83 year old white male who presents to the emergency room with family complaining of short of breath. He does have a history of chronic lung disease and unknown lung mass for which he has refused further evaluation or workup. PAST MEDICAL HISTORY: Hypertension Known pulmonary nodule, has refused previous workup. 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 Fatigue. No fever or chills. HEENT: Eyes: No visual changes. No eye pain. No eye discharge. ENT: No runny nose. No epistaxis. No sinus pain. No sore throat. No odynophagia. No ear pain. No congestion. RESPIRATORY: Cough, no congestion. No hemoptysis. Shortness of breath. CARDIOVASCULAR: No angina symptoms. No CHF symptoms. No atypical chest pain for CAD. No palpitations. No PND. No orthopnea. GASTROINTESTINAL: No abdominal pain. No nausea or vomiting. No diarrhea or constipation. No hematemesis. No hematochezia. GENITOURINARY: No urgency. No frequency. No dysuria. No hematuria. No obstructive symptoms. No discharge. No pain. No significant abnormal bleeding. MUSCULOSKELETAL: No musculoskeletal pain. No joint swelling. No arthritis. NEUROLOGICAL: No headache. No neck pain. No syncope. No seizures. No dizziness. PSYCHIATRIC: Not anxious. No depression. No suicidal thoughts. No homicidal thoughts. SKIN: No rash. No lesions. No wounds. ENDOCRINE: No unexplained weight loss. No weight gain. HEMATOLOGIC/LYMPHATIC: No anemia. No purpura. No petechiae. No prolonged or excessive bleeding. No palpable lymph nodes. PERSONAL/FAMILY/SOCIAL HISTORY: He is a former smoker, He is . No alcohol or illicit drug use. He wishes to be a DNR. MEDICATIONS: Omeprazole 20mg PO twice a day Montelukast Sodium 10mg Po daily Lisinopril 20mg Po daily Chlordiazepoxide 10mg Po twice a day PRN Carvedilol 6.25mg Po Q 12 hours Ultram 50mg Po twice a day PRN Amlodipine Besylate 5mg PO daily ALLERGIES: No known drug allergies PHYSICAL EXAMINATION: GENERAL: The patient is alert and oriented times three. Cachetic. VITAL SIGNS: Temperature 99.3, heart rate 96, respiratory rate 26, blood pressure 108/52 and pulse ox 97%. HEENT: Head normocephalic, atraumatic. Eyes: Extraocular muscles are intact. Pupils are equal, round and reactive to light and accommodation. Ears: No lesions. Nose appeared normal. Throat: No exudate or erythema. NECK: Supple. No JVD, no carotid bruit. No lymphadenopathy or thyromegaly. LUNGS: Severely diminished breath sounds bilaterally with expiratory wheezing. Clear to auscultation. Percussion note normal. Chest symmetrical. HEART: S1, S2, no S3. No murmurs. No cyanosis or clubbing. No ascites. Pulses: Dorsalis pedis and posterior tibial pulses +1 to +2 bilaterally. ABDOMEN: Soft. Nontender. Bowel sounds active. No CVA tenderness. No mass felt. EXTREMITIES: No edema. Full range of motion of all extremities, equal. NEUROLOGIC: No focal deficit. Cranial nerves II through XII are grossly intact. No headache, no double vision or headache. SKIN: Not dry. Intact. Turgor - normal. LYMPHATIC: No palpable lymph nodes/no lymphedema. MUSCULOSKELETAL: Normal joints with no swelling. Muscle tone is normal. LABS: WBC 12.2, hgb 12.1, hct 36.1, plt count 125, sodium 137, potassium 3.6, BUN 12, creatinine 0.63, glucose 119. ABG on room air O2 sat 98, pH 7.42, pCO2 36, pO2 102, Bicarb 23.5, total CO2 25, base excess of -1. Calcium 8.8, Bilirubin 1.1, AST 96, ALT 47, Alkaline phosphatase 83, Troponin less than 0.01, total protein 5.2, Albumin 3.15. CT chest shows a new cavitary opacity seen in the right lower lobe of the lung measuring up to 1.5cm, previous noted small opacity in the right upper lobe lung. Demonstrates an increase in size up to 10mm. May represent infectious versus metastatic versus primary carcinoma. Again He has had the previous right upper lung nodule and has refused further evaluation by gusset stitcher. He has refused biopsies. We have discussed in great detail the possibility that this is malignant due to the fact that he has had continuing weight loss over the past several months. The patient has stated that he wishes not to seek treatment for this possible cancer and that if it is his time to then he is ready to go. We have had an understanding for some time now. ASSESSMENT: 1. Bacterial pneumonia 2. Cavitary lesion of the lung, right lung likely malignant. Has refused further workup. 3. Shortness of breath 4. Hypertension PLAN: 1. We will admit 2. Routine telemetry orders 3. CBC and CMP daily 4. Start Rocephin 1gram IV daily 5. Solu-Cortef 125mg IV Q 8 hours 6. Xopenex NEBS treatment Q 6 hours schedule 7. Normal saline IV at 75cc an hour 8. U/A 9. O2 at 1-2 liters as needed 10.Blood cultures times two We will follow closely. TIME SPENT: More than 70 minutes. MTDD
--- NOTE | 2018-08-22 11:37 | DS ---
DATE OF SERVICE: 08/20/18 FINAL DIAGNOSIS: RIGHT LUNG MASS, CAVITARY LUNG DISEASE COPD BLOOD CULTURES POSITIVE, ESCHERICHIA COLI HARD OF HEARING HYPERTENSION PULMONARY NODULES SHOULDER PAIN, CHRONIC CATARACTS POLYARTHRITIS CHOLECYSTECTOMY NECK FRACTURE LAST VITALS: Temp Pulse Resp BP Pulse Ox 98.4 F 73 18 132/67 97 08/20/18 04:53 08/20/18 04:53 08/20/18 04:53 08/20/18 04:53 08/20/18 04:53 DISCHARGE INSTRUCTIONS: DISCHARGE HOME TODAY, 08/20/18. FOLLOW-UP APPOINTMENT:DR. YUN, MONDAY AUGUST 27, 2018 @ 10:00AM. CODE STATUS: FULL CODE TAKE THESE MEDICATIONS AT HOME: Amlodipine Besylate (Norvasc) 5 mg PO DAILY [facility] Carvedilol (Coreg) 6.25 mg PO Q12HR [facility] Chlordiazepoxide HCl (Librium) 10 mg PO BID PRN Lisinopril (Zestril) 20 mg PO DAILY [facility] Tramadol HCl (Ultram) 50 mg PO BID PRN Singulair 10 mg PO DAILY Omeprazole 20 mg PO BID ALLERGIES: No Known Allergies DISCONTINUED MEDICATIONS: NONE NEW PRESCRIPTIONS: OMNICEF 300MG PO BID X7 DAYS #14/NR NORCO 5/325MG PO HS PRN #15/NR SMOKING: FORMER SMOKER DISEASE SPECIFIC EDUCATION: CAVITARY LUNG DISEASE LUNG MASS, LIKELY MALIGNANT BLOOD CULTURES POSITIVE, E. COLI MEDICATION MANAGEMENT FOLLOW-UP APPOINTMENTS DIET: REGULAR DIET ACTIVITY: INDEPENDENT, UP TOLERATED. HAS A CANE AND WALKER AT HOME NEEDED HOSPITAL COURSE: 83 year old white male who presented to the emergency room with shortness of breath, shoulder pain, cough and congestion. He has had a known lung mass for some time now. He has refused treatment of evaluation. He has refused biopsy. He has been losing weight the past several months. I have discussed with him in great detail the likelihood that this is a malignancy and causing weight loss. He understands and as previously stated that does not wish to know. CT scan revealed changes associated with bronchitis and an increase in cavitary mass in the right lung. We again discussed with him the possibility of this is more likely a malignancy. He again states his wishes that he does not want to know and wants no further treatment or evaluation. He was placed on oxygen initially at 1-2 liters and started on Rocephin, Vancomycin. Started on Solu-Cortef 125mg IV Q 8 hours. He has been afebrile after approximately 36 hours. His shortness of breath has resolved. He did complain of shoulder pain but he had been working out in the yard. He received some Toradol for this 30mg IV three times a day. He did have positive blood cultures from the cultures drawn in the emergency room. However he has been totally asymptomatic. He has had no fever. No Hypotension. Again, he was treated with IV Rocephin as well as Vancomycin. We will discharge him home on Omnicef 300mg twice a day for the next 7 days however I do believe this is a false positive. We did a three step O2 test, he passed and did not qualify for home oxygen. He states that he does need something for pain for when he works in the yard. His shoulders have caused him significant pain so we will do [place] 5-325mg to take at night time. Also we send him home with Prednisone 10mg daily times 5 days. He has been eating fairly well in the hospital, his norm. Labs have been normal. Blood pressure have been controlled. Again he has had no symptoms of sepsis. We will discharge him with [place] to take at night for his pain. He is to take the Omnicef for the next 7 days, Prednisone daily and then we will followup with him in the office next week. We also did due to the cavitary nature of the lesion on the right lung we did order a Quantiferon Gold test for TB testing however the results are still pending. This we will discuss this at his followup. TIME SPENT: More than 60 minutes. CARLITA
--- NOTE | 2018-08-27 12:49 | PN ---
DATE OF SERVICE: 08/20/18 SUBJECTIVE: The patient was seen and examined with Nurse Practitioner. The patient is doing well. His condition has improved. His chronic lung disease is under control. He is going to be on Omnicef because of positive blood cultures, e-coli. I think e- coli is contaminant and I don't see any source of infection. There is no murmur noted. No evidence of endocarditis. The patient's appetite and overall status has improved. The patient declined any further workup for cavitary lesion or lung mass. No referral to any pulmonary physician. CONDITION: Stable. TIME SPENT: More than 30 minutes. Plan and coordination of the patient's care discussed in the presence of nurse. CARLITA
--- NOTE | 2018-08-27 12:50 | PN ---
08/17/18: Level 5 08/18/18: Intermediate 08/19/18: Intermediate 08/20/18: D as in discharge MTDD
== END 2018-08-20 13:45 | disposition home or self-care (01) | DRG 195 ==
LOC: ED 08:53 → MEDSURG B 11:11
PROVIDERS: ADMIT Internal Medicine; ATTEND Internal Medicine
DX: J15.9 Unspecified bacterial pneumonia (principal); D64.9 Anemia, unspecified; J98.4 Other disorders of lung; J44.9 Chronic obstructive pulmonary disease, unspecified; I10 Essential (primary) hypertension; H91.90 Unspecified hearing loss, unspecified ear; A49.8 Other bacterial infections of unspecified site; M25.519 Pain in unspecified shoulder; M13.0 Polyarthritis, unspecified; R63.0 Anorexia; R06.02 Shortness of breath; R05 Cough; R91.8 Other nonspecific abnormal finding of lung field
CPT/HCPCS: 36415; 80053; 80202; 82550; 82803; 83605; 84145; 84484; 85025; 87040; 87070; 87186; 93005; 93010; 94640; 96365; 97802; 99284

== ENCOUNTER 2018-11-16 10:34 | Emergency (ER) ==
[2018-11-16 10:45] VITALS: BMI 14.6
--- NOTE | 2018-11-16 11:46 | CT ---
EXAM: CT Head HISTORY: Pain, history of lung mass COMPARISON: None TECHNIQUE: CT head performed without contrast FINDINGS: There is no mass effect, midline shift, or intracranial hemmorhage. Chen white differenti ation is preserved. There is no extra-axial collection. The ventricles and basal cisterns are paten t and symmetric. Generalized mild prominence of the sulci. Mild patchy periventricular hypoattenuat ion. There is no depressed calvarial fracture. Intracranial atherosclerotic calcifications. The ma stoid air cells are clear. The visualized paranasal sinuses are clear. IMPRESSION: 1. No acute intracranial abnormality. 2. Chronic small vessel ischemic changes and mild cerebral atrophy.
--- NOTE | 2018-11-16 12:01 | CT ---
EXAM: CT cervical spine without contrast HISTORY: Pain TECHNIQUE: Multi-slice transaxial helical with coronal and sagittal reformatted views. COMPARISON: None FINDINGS: No acute fracture or spondylolisthesis. Age indeterminate fracture of the right posterior arch of C1 . Margins are least partially corticated which suggest this chronicity. Multiple small bone fragmen ts around the fracture. No definite second cortical break is identified. Straightening of the harshad l cervical lordosis with reversal at C3-4. 6 mm retrolisthesis of C4 on C5. Ankylosis of the C3-4 a nd C5-6 vertebral bodies. Additional ankylosis of the posterior elements of C2-3, C3-4. Partial anky losis of the C4-5 vertebral bodies.. Anatomic alignment of the facet joints. Paraspinal soft tissue s are unremarkable. Lung apices are clear. IMPRESSION: 1. Critical findings: Age indeterminate fracture of the right posterior arch of C1. Partially dionisio icated margins suggest chronicity. No second break within C1 identified. 2. No other fracture. 3. Diffuse severe cervical spondylosis with multilevel ankylosis and 6 mm retrolisthesis of C4 on C5 . Urgent findings discussed with at Dr Deng Da Silva at 11:50 a.m. on 11/16/2018.
--- NOTE | 2018-11-16 12:23 | CT ---
EXAM: CT chest without contrast HISTORY: Lung mass, history of cough COMPARISON: 08/17/2018 TECHNIQUE: Multiple axial images of the chest were obtained without intravenous contrast. Images wer e reformatted in the sagittal and coronal planes. FINDINGS: Exam is mildly degraded by motion. Normal heart size. No pericardial effusion. Mild ectasia of the ascending aorta measuring up to 3.6 cm. Coronary artery atherosclerotic calcifications. No enlarged mediastinal, hilar or axillary lymph nodes all by size criteria. Biapical pleural scarring. Redemonstrated right lower lobe perifissural 1.7 x 1.6 cm consolidative o pacity (axial 49) with central lucency suggesting cavitation. Previously on 08/17/2018 this measured 17 x 15 mm. Small cluster of posterior right upper lobe nodular opacities are mildly increased in s ize and number. New ground-glass nodule in the posterior right lower lobe measures 14 x 8 mm (axial 38). Ground-glass opacity in the posterior right upper lobe (axial 29 is unchanged (axial 29). No p neumothorax or pleural effusion.. No suspicious pulmonary nodule. No acute findings within the visualized upper abdomen. Prior cholecystectomy. Please refer to abdom inal CT report for details. No acute osseous abnormality. No aggressive osseous lesion. IMPRESSION: 1. No acute chest findings. 2. Unchanged cavitary lesion in the right lower lobe measuring 17 x 16 mm since 08/17/2018. 3. Sub-centimeter patchy nodular opacities in the right upper lobe are increased since prior exam. Considerations include infectious, inflammatory and malignant etiologies. 4. Atherosclerosis.
--- NOTE | 2018-11-16 12:24 | CT ---
EXAM: CT scan of the abdomen and pelvis without contrast HISTORY: Lung mass. Weakness, patient cannot walk TECHNIQUE: Helical imaging of the abdomen pelvis was performed without contrast. 3 mm thin axial im ages and coronal and sagittal reconstructions were provided for interpretation. Comparison 01/22/2017 CT scan of the abdomen pelvis and CT scan of the chest dated 08/17/2018.. FINDINGS: There is been previous cholecystectomy. The pancreas, adrenal glands and kidneys appear n ormal. The proximal ureters are normal size. The small and large bowel loops are normal caliber. T here is no free air. No retroperitoneal abnormalities are seen. Low density lesions are again seen within the liver. The helical images obtained through the pelvis demonstrate a normal appearance of the rectum, urinary bladder. There is no free fluid seen within the pelvis. Scattered diverticula are seen within the sigmoid colon without acute inflammation. There is enlargement of the prostate gland. The appendix was not well seen. No definite inflammatory changes are seen in the right lower quadrant. An opacit y is again seen in the right lower lobe of the lung. No lytic or blastic lesions are seen within the osseous structures. IMPRESSION: There is no bowel obstruction or acute inflammatory change seen within the abdomen and p arcadio. There is no ureteral obstruction. A nodular opacity is seen in the right lower lobe of the lung. The lesion is not completely evaluate d on this examination. The lesion was also seen on previous CT scan of the chest dated this 03/2018. Low density lesions are again seen throughout the liver. The findings may represent small cysts. Me tastatic disease cannot be excluded. The evaluation of the lesions was limited without intravenous c ontrast. Prostatic hypertrophy. 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
--- NOTE | 2018-11-16 12:28 | CT ---
EXAM: CT scan of the lumbar spine without contrast HISTORY: Patient cannot walk, pain TECHNIQUE: Helical imaging of the lumbar spine was performed without contrast. Sagittal and coronal reconstructions and axial images were provided for interpretation. FINDINGS: There is straightening of the lumbar spine. There is no evidence of acute compression fra cture. The paraspinal soft tissues are normal. No acute fractures are seen within the sacrum. Five lumbar-type vertebral bodies are seen. Segmental analysis: T12-L1: The central canal and neural foramina appear patent. L1-L2: The central canal and neural foramina appear patent. L2-L3: There is mild disc bulge. The central canal and neural foramina appear adequately patent. L3-L4: The central canal and neural foramina appear adequately patent. L4-L5: The central canal and lateral recesses appear patent. There is a moderate to severe loss of disc height and mild facet arthropathy resulting in mild bilateral foraminal stenosis. L5-S1: The central canal and lateral recesses appear patent. There is moderate to severe loss of di sc height and mild to moderate facet joint arthropathy resulting in moderate bilateral foraminal sten osis. IMPRESSION: No evidence of acute compression fracture. There is no central canal stenosis. No evidence of metastatic disease or signs of cord compression. There is loss of disc height and facet arthropathy resulting in foraminal stenosis seen within the lo wer lumbar spine as described above.
--- NOTE | 2018-11-16 12:36 | CT ---
EXAM: CT thoracic spine without contrast History: Pain, lung mass TECHNIQUE: Multi-slice transaxial helical with coronal and sagittal reformatted views. Comparison: Same day chest CT. FINDINGS: No acute fracture or spondylolisthesis. Vertebral body heights are preserved. No aggressive osseous lesion. Mild multilevel disc space narrowing, endplate spurring, most pronounced at T7-T8, T8-T9 an d T9-T10. No evidence of high-grade canal or foraminal narrowing. Paravertebral soft tissues are un remarkable. Please refer to chest CT for pulmonary findings of an abdominal CT report for those findings. Aortic atherosclerotic calcifications. Impression: 1. No acute osseous abnormality. 2. Mild multilevel spondylosis without evidence of high-grade canal or foraminal narrowing.
[2018-11-16 13:02] VITALS: BP 128/74; TEMP 98
--- NOTE | 2018-11-16 13:03 | ED.PDOC ---
General ED Provider: Dr. APRIL MARQUIS Chief Complaint: Weakness Stated Complaint: generalized weakness, fall 2 weeks ago. 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 pt c/o to his son that he is weaker. Time Seen by Physician: 10:36 Mode of Arrival: Walk-In Information Source: Patient Exam Limitations: No limitations Primary Care Provider: RANDY YUN Nursing and Triage Documentation Reviewed and Agree: Yes Does patient meet sepsis criteria?: No System Inflammatory Response Syndrome: Not Applicable Sepsis Protocol: For patient's 13 years and over: Temp is 96.8 and below OR 101 and greater Pulse >90 BPM Resp >20/minute Acutely Altered Mental Status Are patient's symptoms suggestive of a new infection, such as: -Pneumonia -Skin, Soft Tissue -Endocarditis -UTI -Bone, Joint Infection -Implantable Device -Acute Abdominal Infection -Wound Infection -Meningitis -Blood Stream Catheter Infection -Unknown Miscellaneous Complaint Exam - Complex/Multi-System Complaint/Exam Onset/Duration: generalized weakness x 1 week Symptoms Are: Still present Episodes Lasting: Weeks Initial Severity: Mild Current Severity: None Location of Pain: low back pain fell in shower last week Pain Radiates to: N/A Character: N/A Aggravating: N/A Associated Signs and Symptoms: Reports: Weakness, Cough, Back pain. Denies: Decreased responsiveness, Confusion, Agitation, Dizziness, Syncope, Headache, Short of air, Wheezing, Hemoptysis, Chest pain, Palpitations, Edema, Nausea, Vomiting, Diarrhea, Abdominal pain, Dysuria, Hematemesis, Melena, Decreased oral intake, Fever, Diaphoresis, Immunocompromised, Anticoagulation Therapy, Recent medication changes, Indwelling medical reimbursement manager, Prior MRSA, Prior VRE, Recent trauma, Remote trauma Recent Echo/LV Function: No Respiratory Distress: None JVD Present: No Tachypnea Present: No Stridor Present: No Abdominal Findings: Present: Normal findings Glascow Coma Scale (see protocol): 15 Meningeal Signs Positive: No Focal Sensory Loss: Present: None Babinski Sign: Negative Right, Negative Left Skin Findings: Present: Normal findings Joint Swelling Present: No In-Dwelling Device Present: No Differential Diagnosis: Metabolic Abnormality, Other (MYLODYSPLACTIC SYNDROME( CYTOPENIAS+ MACROCYTOSIS= A CAVITARY LUNG LESION UNDIAGNISED)) Quality Indicators for Cardiac Chest Pain: EKG in 10min. Quality Indicators for AMI: EKG in 10min. Quality Indicator For Non-Traumatic Chest Pain/Syncope: EKG Performed Review of Systems - Review Of Systems Constitutional: Reports: Malaise, Weakness Eyes: Reports: No symptoms Ears, Nose, Mouth, Throat: Reports: No symptoms Respiratory: Reports: Cough Cardiac: Reports: No symptoms GI: Reports: Abdominal pain, Poor appetite : Reports: No symptoms Musculoskeletal: Reports: Back pain Skin: Reports: No symptoms Neurological: Reports: No symptoms Endocrine: Reports: No symptoms Hematologic/Lymphatic: Reports: No symptoms All Other Systems: Reviewed and Negative Past Medical History - Past Medical History Previously Healthy: Yes Endocrine: Reports: Unknown Cardiovascular: Reports: Hypertension Respiratory: Reports: Unknown, Other (cavitary lung lesion, PT HAS REFUSED TO HAVE THIS LESION BIOPSIED OR TREATED ) Hematological: Reports: Unknown Gastrointestinal: Reports: Unknown Genitourinary: Reports: Unknown Neuro/Psych: Reports: Unknown Musculoskeletal: Reports: Other (c spine fracture according to Carol pt's daughter 40 years ago) Cancer: Reports: Unknown - Surgical History General Surgical History: Reports: Unknown - Family History Family History: Reports: Unknown - Social History Smoking Status: Former smoker Hx Substance Use: No Alcohol Screening: None - Immunizations Tetanus Shot up to Date: Yes Physical Exam - Physical Exam Appearance: Ill-appearing, Thin Ill-appearing: Mild Pain Distress: Mild Eyes: JESSICA, EOMI, Conjunctiva clear ENT: Ears normal, Nose normal, Oropharynx normal Respiratory: Breath sounds diminished, Rhonchi Cardiovascular: RRR, Pulses normal, No rub, No murmur GI/: Soft, Nontender, No masses, Bowel sounds normal, No Organomegaly Musculoskeletal: Normal strength, ROM intact, No edema, No calf tenderness Skin: Warm, Dry, Normal color Neurological: Sensation intact, Motor intact, Reflexes intact, Cranial nerves intact, Alert, Oriented Psychiatric: Affect appropriate, Mood appropriate Interpretation - Radiology Interpretation Radiology Interpretation By: Radiologist Radiology Results: Positive (post c1 fx , ct chest cavitary lesion unchanged) Physician Notification - Case Discussed Physician Notified: ANIRUDH Time of Notification: 13:19 ([address] DISCUSSED, STATED THIS A STABLEFX ) Physician Notified: kurtis carolina Time of Notification: 13:47 Admit/Transition Orders Entered by ED Provider: Yes Admit To: Inpatient Critical Care Note - Critical Care Note Total Time (mins): 180 Course - Course Hematology/Chemistry: 11/16/18 11:50 11/16/18 11:50 Orders, Labs, Meds: Lab Review 11/16/18 11/16/18 11/16/18 11:50 11:50 11:50 WBC 6.08 RBC 3.76 L Hgb 12.5 L Hct 37.1 L MCV 98.7 H MCH 33.2 H MCHC 33.7 RDW Coeff of Finn 11.9 Plt Count 126 L Immature Gran % (Auto) 0.3 Neut % (Auto) 68.0 Lymph % (Auto) 22.5 Coles % (Auto) 6.4 Eos % (Auto) 2.0 Baso % (Auto) 0.8 Immature Gran # (Auto) 0.0 Neut # (Auto) 4.1 Lymph # (Auto) 1.4 Coles # (Auto) 0.4 Eos # (Auto) 0.1 Baso # (Auto) 0.1 Sodium 136.0 Potassium 3.78 Chloride 106.5 Carbon Dioxide 23.1 Anion Gap 10.18 BUN 13.4 Creatinine 0.63 Estimated GFR (MDRD) 122.00 BUN/Creatinine Ratio 21.26 Glucose 103.5 Lactic Acid Calcium 8.72 Total Bilirubin 1.09 AST 29.2 ALT 13.9 Alkaline Phosphatase 68.0 Total Creatine Kinase 128.4 CK-MB (CK-2) 2.770 H CK-MB (CK-2) % 2.1500 Troponin I < 0.012 Total Protein 5.60 L Albumin 3.40 L Globulin 2.20 Albumin/Globulin Ratio 1.54 Procalcitonin Free T4 1.62 11/16/18 11/16/18 11:50 11:50 WBC RBC Hgb Hct MCV MCH MCHC RDW Coeff of Finn Plt Count Immature Gran % (Auto) Neut % (Auto) Lymph % (Auto) Coles % (Auto) Eos % (Auto) Baso % (Auto) Immature Gran # (Auto) Neut # (Auto) Lymph # (Auto) Coles # (Auto) Eos # (Auto) Baso # (Auto) Sodium Potassium Chloride Carbon Dioxide Anion Gap BUN Creatinine Estimated GFR (MDRD) BUN/Creatinine Ratio Glucose Lactic Acid 1.98 Calcium Total Bilirubin AST ALT Alkaline Phosphatase Total Creatine Kinase CK-MB (CK-2) CK-MB (CK-2) % Troponin I Total Protein Albumin Globulin Albumin/Globulin Ratio Procalcitonin < 0.05 Free T4 Orders Category Date Time Status EKG-(ED ONLY) Stat CARDIO 11/16/18 11:13 Ordered BLOOD CULTURE (ED ONLY) Stat LAB 11/16/18 11:14 Ordered CBC W/ AUTO DIFF Stat LAB 11/16/18 11:12 Ordered COMPREHENSIVE METABOLIC PANEL Stat LAB 11/16/18 11:50 Completed CREATINE KINASE Stat LAB 11/16/18 11:13 Ordered FREE T4 (FREE THYROXINE) Stat LAB 11/16/18 11:13 Ordered LACTIC ACID Stat LAB 11/16/18 11:14 Ordered PROCALCITONIN Stat LAB 11/16/18 11:14 Ordered TROPONIN I Stat LAB 11/16/18 11:13 Ordered URINALYSIS C & S IF INDICATED Stat LAB 11/16/18 11:[address] ABDOMEN/PELVIS WO CONTRAST Stat RADS 11/16/18 11:[address] CERVICAL SPINE W/O CONTRAST Stat RADS 11/16/18 11:[address] CHEST W/O CONTRAST Stat RADS 11/16/18 11:[address] HEAD W/O CONTRAST Stat RADS 11/16/18 11:[address] LUMBAR SPINE W/O CONTRAST Stat RADS 11/16/18 11:[address] THORACIC SPINE W/O CONTRAST Stat RADS 11/16/18 11:14 Ordered Vital Signs: Temp Pulse Resp BP Pulse Ox 11/16/18 10:36 97.9 F 58 L 20 98/56 L 94 L Departure - Departure Time of Disposition: 13:19 Disposition: ADMITTED INPATIENT Discharge Problem: Cavitary lesion of lung Anemia Qualifiers: Anemia type: unspecified type Qualified Code(s): D64.9 - Anemia, unspecified Neck fracture Qualifiers: Cervical vertebra fracture level: C1 Condition: Stable Pt referred to PMD for follow-up: Yes IPMP verified?: No Additional Instructions: Please call your Family Physician as soon as possible to schedule a follow-up appointment. Allergies/Adverse Reactions: Allergies No Known Allergies Allergy (Verified 11/16/18 10:53) Home Medications: Ambulatory Orders Amlodipine Besylate 5 mg PO DAILY 08/17/18 Carvedilol 6.25 mg PO Q12HR 08/17/18 Chlordiazepoxide HCl 10 mg PO BID PRN 08/17/18 Lisinopril 20 mg PO DAILY 08/17/18 Montelukast Sodium 10 mg PO DAILY 08/17/18 Tramadol HCl [Ultram] 50 mg PO BID PRN 08/17/18 Disposition Discussed With: Patient, Family (CAROL SPOKE TO DOCTOR KURTIS)
== END 2018-11-16 14:23 | disposition short-term general hospital (02) ==
LOC: ED 10:34
DX: R91.1 Solitary pulmonary nodule (principal); D64.9 Anemia, unspecified; S12.000A Unspecified displaced fracture of first cervical vertebra, initial encounter for closed fracture; R53.1 Weakness; M54.5 Low back pain; R05 Cough; I10 Essential (primary) hypertension; W19.XXXA Unspecified fall, initial encounter; Z79.899 Other long term (current) drug therapy
CPT/HCPCS: 36415; 80053; 81001; 82550; 82553; 83605; 84145; 84439; 84484; 85025; 87040; 93005; 93010; 99285

== ENCOUNTER 2018-11-16 14:21 | Outpatient (CLI) | payer OTHER ==
[2018-11-16 10:45] VITALS: BMI 14.6
== END 2018-11-16 14:42 | disposition short-term general hospital (02) ==
LOC: AMBL 14:21
PROVIDERS: ATTEND Internal Medicine
DX: S12.9XXA Fracture of neck, unspecified, initial encounter (principal); W19.XXXA Unspecified fall, initial encounter